=== PATIENT | female | born 1965 | race Caucasian/White ===

== ENCOUNTER → 2017-09-12 | Outpatient (CLI) | payer OTHER | END | disposition home or self-care (01) | LOC: CFH 12:12 | PROVIDERS: ATTEND Genetic Counselor, MS | DX: Z12.31 Encounter for screening mammogram for malignant neoplasm of breast (principal) | CPT/HCPCS: 77063; 77067 ==

== ENCOUNTER 2021-02-15 09:03 | Outpatient (CLI) | payer OTHER ==
[2021-02-15] MEDS ORDERED: DILT120C80 PO (19:47)
[2021-02-15] MEDS ORDERED: SERT50TA28 PO (19:47)
[2021-02-15] MEDS ORDERED: METF500T17 PO (19:47)
[2021-02-15] MEDS ORDERED: MONT10TA17 PO (19:47)
[2021-02-15] MEDS ORDERED: VALA500T8 PO (19:47)
[2021-02-15] MEDS ORDERED: ATOR20TA86 PO (19:47)
[2021-02-15] MEDS ORDERED: LISI-170 PO (19:47)
[2021-02-15] MEDS ORDERED: BUSP5TAB2 PO (19:47)
[2021-02-16] MEDS ORDERED: IBUP-1221 PO (10:22)
[2021-02-16] MEDS ORDERED: OXYC5TAB98 PO (10:22)
[2021-02-16] MEDS ORDERED: POLY17PO5 PO (10:22)
[2021-02-16] MEDS ORDERED: PHEN-583 PO (10:22)
[2021-02-16] MEDS ORDERED: CEFD300C37 PO (10:22)
== END 2021-02-15 23:59 | disposition home or self-care (01) ==
LOC: CFH 09:03
PROVIDERS: ATTEND Nurse Practitioner Family
DX: N20.0 Calculus of kidney (principal); N13.30 Unspecified hydronephrosis; I25.10 Atherosclerotic heart disease of native coronary artery without angina pectoris; N39.0 Urinary tract infection, site not specified; R31.9 Hematuria, unspecified
CPT/HCPCS: 74176

== ENCOUNTER 2021-02-15 12:07 | Inpatient (IN) | payer OTHER ==
[~2021-02-15] VITALS: Ht 167.6 cm; Wt 94.1 kg
[2021-02-15] MEDS: FENTANYL PF 100 MCG/2ML IV PRN ×3 (08:40→18:50)
[2021-02-15 13:07] LABS: BASOPHILS % (AUTO) 1 % (0-1); EOSINOPHILS % (AUTO) 3 % (1-7); LYMPHOCYTES % (AUTO) 36 % (22-44); MEAN CORPUSCULAR HEMOGLOBIN 29.1 pg (27.0-34.8); MEAN CORPUSCULAR HGB CONC 33.2 g/dL (32.4-35.8); MEAN PLATELET VOLUME 7.8 fL (7.4-10.4); MONOCYTES % (AUTO) 5 % (2-9); NEUTROPHILS % (AUTO) 55 % (42-75); PLATELET COUNT 399 x10^3/uL (130-400); RED BLOOD COUNT 4.42 x10^6/uL (3.82-5.3); RED CELL DISTRIBUTION WIDTH 14.2 % (9.6-15.2)
[2021-02-15 13:18] LABS: ALANINE AMINOTRANSFERASE 27 U/L (12-78); ALBUMIN 3.8 g/dL (3.4-5.0); ANION GAP 11 mmol/L (5-15); CALCIUM 9.4 mg/dL (8.5-10.1); CHLORIDE 106 mmol/L (98-107); CREATININE 0.92 mg/dL (0.55-1.02)
[2021-02-15 13:20] LABS: ALKALINE PHOSPHATASE 134 U/L (45-117); BILIRUBIN,TOTAL 0.4 mg/dL (0.2-1.0); TOTAL PROTEIN 8.1 g/dL (6.4-8.2)
[2021-02-15 13:36] LABS: MICROSCOPIC AUTO
[2021-02-15 16:30] VITALS: BP 129/92
[2021-02-15] MEDS ORDERED: MIDAZOLAM 1 MG/ML, 2ML ONE (17:34)
[2021-02-15] MEDS ORDERED: OMNIPAQUE 350 MG/ML, 50 ML BOTTLE ONE (17:59)
[2021-02-15] MEDS ORDERED: ACETAMINOPHEN 325 MG TABLET PO PRN (18:00)
[2021-02-15] MEDS ORDERED: ONDANSETRON ODT 4 MG PO PRN (18:00)
[2021-02-15] MEDS ORDERED: POLYETHYLENE GLYCOL 17 GM PACKET PO PRN (18:00)
[2021-02-15] MEDS ORDERED: DOCUSATE 100 MG CAPSULE PO PRN (18:00)
[2021-02-15] MEDS ORDERED: hydrALAzine 20 MG/ML, 1ML IVPush PRN (18:00)
[2021-02-15] MEDS ORDERED: PROMETHAZINE 25 MG/ML, 1ML IM PRN (18:00)
[2021-02-15] MEDS ORDERED: ONDANSETRON 2MG/ML, 2ML IVPush PRN ×2 (18:00→19:00)
[2021-02-15] MEDS ORDERED: OXYcodone IR 5MG TABLET PO PRN (18:00)
[2021-02-15] MEDS ORDERED: morphine SULFATE 10 MG/ML, 1ML IVPush PRN (18:00)
[2021-02-15] MEDS ORDERED: BISACODYL 10 MG SUPP PR PRN (18:00)
[2021-02-15] MEDS ORDERED: FENTANYL PF 100 MCG/2ML ONE (18:36)
[2021-02-15] MEDS ORDERED: PHENAZOPYRIDINE 200 MG TABLET PO PRN (19:00)
[2021-02-15] MEDS ORDERED: PROMETHAZINE 25 MG/ML, 1ML IV PRN (19:00)
[2021-02-15] MEDS ORDERED: METOCLOPRAMIDE 5 MG/ML, 2ML IV PRN (19:00)
[2021-02-15] MEDS ORDERED: HYDROmorphone 1 MG/ML, 1ML INJ IV PRN (19:00)
[2021-02-15] MEDS ORDERED: OPIUM/BELLADONNA SUPP.RECT 16.2-60 MG PR PRN (19:00)
[2021-02-15] MEDS ORDERED: hydrALAzine 20 MG/ML, 1ML IV PRN (19:00)
[2021-02-15] MEDS ORDERED: MEPERIDINE/PF 25MG/0.5ML IVPush PRN (19:00)
[2021-02-15] MEDS ORDERED: KETOROLAC 30 MG/1 ML IV PRN (19:00)
[2021-02-15] MEDS ORDERED: DIAZEPAM 5 MG/ML, 2ML IV PRN ×2 (19:00)
[2021-02-15] MEDS ORDERED: OXYcodone 5 MG/5 ML ORAL.SOL UDC PO PRN (19:00)
[2021-02-15] MEDS ORDERED: LABETALOL 5MG/ML, 20ML IV PRN (19:00)
[2021-02-15] MEDS ORDERED: ALBUTEROL SULFATE 2.5 MG/3 ML NPPB PRN (19:00)
[2021-02-15] MEDS ORDERED: PHENAZOPYRIDINE 200 MG TABLET ONE (19:10)
[2021-02-15 19:34] VITALS: BP 129/90
[2021-02-15] MEDS ORDERED: DILT120C80 PO (19:47)
[2021-02-15] MEDS ORDERED: BUSP5TAB2 PO (19:47)
[2021-02-15] MEDS ORDERED: MONT10TA17 PO (19:47)
[2021-02-15] MEDS ORDERED: VALA500T8 PO (19:47)
[2021-02-15] MEDS ORDERED: METF500T17 PO (19:47)
[2021-02-15] MEDS ORDERED: SERT50TA28 PO (19:47)
[2021-02-15] MEDS ORDERED: LISI-170 PO (19:47)
[2021-02-15] MEDS ORDERED: ATOR20TA86 PO (19:47)
[2021-02-15] MEDS: SODIUM CHLORIDE 0.9% 1,000 ML IV SCH (20:16)
[2021-02-15] MEDS ORDERED: CEFTRIAXONE 2 GM in DEXTROSE 5% 50 ML IVPB SCH (22:30)
[2021-02-15] MEDS: INSULIN LISPRO 100 UNITS/ML, PEN SQ-INSULIN SCH (23:27)
[2021-02-16 00:18] VITALS: BP 132/85
[2021-02-16 05:03] VITALS: BP 146/94
[2021-02-16] MEDS: SODIUM CHLORIDE 0.9% 1,000 ML IV SCH (05:04)
[2021-02-16 05:48] LABS: BASOPHILS % (AUTO) 1 % (0-1); EOSINOPHILS % (AUTO) 1 % (1-7); LYMPHOCYTES % (AUTO) 25 % (22-44); MEAN CORPUSCULAR HEMOGLOBIN 29.4 pg (27.0-34.8); MEAN CORPUSCULAR HGB CONC 33.4 g/dL (32.4-35.8); MEAN PLATELET VOLUME 7.8 fL (7.4-10.4); MONOCYTES % (AUTO) 5 % (2-9); NEUTROPHILS % (AUTO) 69 % (42-75); PLATELET COUNT 352 x10^3/uL (130-400); RED BLOOD COUNT 4.18 x10^6/uL (3.82-5.3); RED CELL DISTRIBUTION WIDTH 14.1 % (9.6-15.2)
[2021-02-16 06:02] LABS: ALBUMIN 3.4 g/dL (3.4-5.0); CHLORIDE 107 mmol/L (98-107)
[2021-02-16 06:14] LABS: ALANINE AMINOTRANSFERASE 22 U/L (12-78); ALKALINE PHOSPHATASE 116 U/L (45-117); ANION GAP 7 mmol/L (5-15); BILIRUBIN,TOTAL 0.4 mg/dL (0.2-1.0); CHOL/HDL RATIO 2.7; CHOLESTEROL, TOTAL 134 mg/dL (140-239); CREATININE 0.84 mg/dL (0.55-1.02); HDL CHOL % 37 % (28-40); HDL CHOLESTEROL (DIRECT) 49 mg/dL (40-60); LDL CHOLESTEROL,CALCULATED 26 mg/dL (54-169); LDL/HDL RATIO 0.5 (0.5-3.0); TOTAL PROTEIN 7.5 g/dL (6.4-8.2); TRIGLYCERIDES 293 mg/dL (50-200); VLDL CHOLESTEROL 59 mg/dL (0-25)
[2021-02-16] MEDS: INSULIN LISPRO 100 UNITS/ML, PEN SQ-INSULIN SCH (07:00)
[2021-02-16 08:00] VITALS: BP 164/94
[2021-02-16] MEDS ORDERED: PHEN-583 PO (10:22)
[2021-02-16] MEDS ORDERED: POLY17PO5 PO (10:22)
[2021-02-16] MEDS ORDERED: IBUP-1221 PO (10:22)
[2021-02-16] MEDS ORDERED: OXYC5TAB98 PO (10:22)
[2021-02-16] MEDS ORDERED: CEFD300C37 PO (10:22)
== END 2021-02-16 11:18 | disposition home or self-care (01) | DRG 661 ==
LOC: ED 14:30 → 4NE 15:40 → ED 18:16
PROVIDERS: ADMIT Internal Medicine; ATTEND Internal Medicine
PROC: BT1D1ZZ Fluoroscopy of Right Kidney, Ureter and Bladder using Low Osmolar Contrast (ICD-10-PCS; 2021-02-15)
PROC: 0T768DZ Dilation of Right Ureter with Intraluminal Device, Via Natural or Artificial Opening Endoscopic (ICD-10-PCS; principal; 2021-02-15 17:30)
DX: N13.6 Pyonephrosis (principal); E11.9 Type 2 diabetes mellitus without complications; E78.5 Hyperlipidemia, unspecified; I10 Essential (primary) hypertension; J45.909 Unspecified asthma, uncomplicated; Z20.822 Contact with and (suspected) exposure to COVID-19; Z82.49 Family history of ischemic heart disease and other diseases of the circulatory system; Z79.899 Other long term (current) drug therapy; Z79.84 Long term (current) use of oral hypoglycemic drugs
CPT/HCPCS: 36415; 80053; 80061; 81001; 82962; 83036; 83605; 83735; 84100; 84145; 84443; 85025; 87040; 87086; 87635; 96374; 96376; 99285; G0378; J0696; J2250; J3010; Q9967; C1769; C2617; J1815; J7030

== ENCOUNTER 2021-03-06 08:05 | Outpatient (CLI) | payer OTHER ==
[~2021-03-06 08:05] MED LIST: ATOR20TA86 PO; BUSP5TAB2 PO; CEFD300C37 PO; DILT120C80 PO; IBUP-1221 PO; LISI-170 PO; METF500T17 PO; MONT10TA17 PO; OXYC5TAB98 PO; PHEN-583 PO; POLY17PO5 PO; SERT50TA28 PO; VALA500T8 PO
[2021-03-06 09:21] LABS: MICROSCOPIC INDICATED
[2021-03-06] MEDS ORDERED: CHOL10003 PO (09:29)
[2021-03-06] MEDS ORDERED: CETI-158 PO (09:29)
== END 2021-03-06 23:59 | disposition home or self-care (01) ==
LOC: STAR 08:05
PROVIDERS: ATTEND Anesthesiology
DX: Z01.812 Encounter for preprocedural laboratory examination (principal); Z20.822 Contact with and (suspected) exposure to COVID-19; N20.0 Calculus of kidney
CPT/HCPCS: 36415; 81001; 87086; 87635

== ENCOUNTER 2021-03-10 08:00 | Day surgery (SDC) | payer OTHER ==
[~2021-03-10] VITALS: Ht 167.6 cm; Wt 84.4 kg
[2021-03-10 06:24] VITALS: BP 115/75
== END 2021-03-10 10:00 | disposition home or self-care (01) ==
LOC: OR 08:00
PROVIDERS: ATTEND Urology
DX: N20.1 Calculus of ureter (principal); E11.9 Type 2 diabetes mellitus without complications; E03.9 Hypothyroidism, unspecified; E78.00 Pure hypercholesterolemia, unspecified
CPT/HCPCS: 52353; 74018; 82360; 82962; 88300; C1769; J2175; J2250; J3010; J7120